=== PATIENT | female | born 1950 | race Caucasian/White ===

== ENCOUNTER 2016-11-08 06:06 | Emergency (ER) | payer MEDICARE, OTHER ==
[~2016-11-08] VITALS: Ht 160 cm; Wt 61.4 kg
[2016-11-08 06:08] VITALS: TEMP 97.6
[2016-11-08] MEDS ORDERED: SINGULAIR 110 MG/TAB PO (06:46)
[2016-11-08] MEDS ORDERED: CLARITIN 1010 MG/TAB PO (06:46)
[2016-11-08] MEDS ORDERED: FLONASE NASAL S16 GM NS (06:46)
[2016-11-08] MEDS ORDERED: LIPITOR 10MG10 MG PO (06:46)
[2016-11-08] MEDS ORDERED: NATURE'S BLEN2000 IU PO (06:47)
[2016-11-08] MEDS ORDERED: PRILOSEC 20MG20 MG PO (06:47)
[2016-11-08 06:48] LABS: BASO # 0.1 (0.0-0.2); BASO % 1.1 % (0.0-2.0); EOS # 0.2 (0.0-0.7); EOS % 2.6 % (0-4.0); GRAN # 3.2 (1.4-6.5); GRAN % 49.1 % (42.2-75.2); HEMATOCRIT 42.6 % (37.0-47.0); HEMOGLOBIN 14.1 g/dl (12.5-16.0); LYMPH # 2.5 (1.2-3.4); LYMPH % 38.4 % (20.0-51.0); MEAN CELL VOLUME 86 fl (80.0-100.0); MEAN CORPUSCULAR HEMOGLOBIN 29 pg (27.0-31.0); MEAN CORPUSCULAR HGB CONC 33 g/dl (33.0-37.0); MEAN PLATELET VOLUME 10.2 fl (7.4-10.4); MONO # 0.6 (0.1-0.6); MONO % 8.6 % (1.7-9.3); PLATELET COUNT 231 K/mm3 (130-400); RED BLOOD COUNT 4.95 M/mm3 (4.10-5.30); REDCELL DISTRIBUTION WIDTH-CV 12.8 % (11.5-14.5); WHITE BLOOD COUNT 6.6 K/mm3 (4.8-10.8)
[2016-11-08 07:10] LABS: ADJUSTED CALCIUM 8.9 mg/dL (8.4-10.2); ALANINE AMINOTRANSFERASE 29 U/L (9-52); ALKALINE PHOSPHATASE 82 U/L (50-136); ANION GAP 11 mmol/L (7-16); BILIRUBIN,TOTAL 0.8 mg/dL (0.0-1.0); BLOOD UREA NITROGEN 10 mg/dL (7-17); CALCIUM 8.9 mg/dL (8.4-10.2); CARBON DIOXIDE 27 mmol/L (22-30); CHLORIDE 102 mmol/L (98-107); CREATININE, serum 0.64 mg/dL (0.52-1.25); GLUCOSE 86 mg/dL (74-106); LIPASE 47 U/L (23-300); POTASSIUM 3.6 mmol/L (3.4-5.0); SODIUM 140 mmol/L (137-145)
[2016-11-08 07:21] LABS: B-TYPE NATRIURETIC PEPTIDE 138 pg/mL (0-125)
[2016-11-08 07:36] LABS: TROPONIN-I < 0.012 ng/mL (0.000-0.034)
[2016-11-08] MEDS ORDERED: ZOFRAN ODT4 MG PO (09:45)
[2016-11-08] MEDS ORDERED: NORCO 325 MG-51 TAB PO (09:45)
[2016-11-08 10:24] LABS: PH 7 (5-8); SQUAMOUS EPITHELIAL None Seen /hpf; URINE APPEARANCE Clear; URINE BACTERIA None Seen /hpf; URINE BILIRUBIN Negative (NEGATIVE); URINE BLOOD 1+ (NEGATIVE); URINE COLOR Yellow; URINE GLUCOSE Negative (NEGATIVE); URINE KETONE Negative (NEGATIVE); URINE UROBILINOGEN Negative (NEGATIVE); URINE WBC 0-2 /hpf
[2016-11-08 10:50] VITALS: BP 113/69; PULSE 50
== END 2016-11-08 10:52 | disposition home or self-care (01) ==
LOC: COL.ER 06:06
PROVIDERS: Emergency Medicine
DX: R10.11 Right upper quadrant pain (principal)
CPT/HCPCS: J1170; J1885; J7030

== ENCOUNTER → 2016-11-11 | Outpatient (CLI) | payer MEDICARE, OTHER ==
[~2016-11-11] MED LIST: CLARITIN 1010 MG/TAB PO; FLONASE NASAL S16 GM NS; LIPITOR 10MG10 MG PO; NATURE'S BLEN2000 IU PO; NORCO 325 MG-51 TAB PO; PRILOSEC 20MG20 MG PO; SINGULAIR 110 MG/TAB PO; ZOFRAN ODT4 MG PO
== END ==
LOC: COL.RAD 08:50
DX: R07.9 Chest pain, unspecified (principal)
CPT/HCPCS: A9537; J2805

== ENCOUNTER → 2018-06-04 | Outpatient (CLI) | payer MEDICARE, OTHER | LOC: MC.RAD 13:34 | DX: Z12.31 Encounter for screening mammogram for malignant neoplasm of breast (principal) ==

== ENCOUNTER → 2018-07-20 | Outpatient (CLI) | payer MEDICARE, OTHER | LOC: COL.VAS 07:46 | DX: R20.2 Paresthesia of skin (principal) ==

== ENCOUNTER → 2019-06-13 | Outpatient (CLI) | payer MEDICARE, OTHER | LOC: MC.RAD 14:06 | DX: Z12.31 Encounter for screening mammogram for malignant neoplasm of breast (principal) ==

== ENCOUNTER → 2020-06-15 | Outpatient (CLI) | payer MEDICARE, OTHER | LOC: MC.RAD 13:00 | DX: Z12.31 Encounter for screening mammogram for malignant neoplasm of breast (principal) ==

== ENCOUNTER → 2021-07-13 | Outpatient (CLI) | payer MEDICARE, OTHER | LOC: ZCOL.LAB 17:16 | DX: U07.1 COVID-19 (principal) ==

== ENCOUNTER → 2021-07-27 | Outpatient (CLI) | payer MEDICARE, OTHER | LOC: MC.RAD 10:49 | DX: Z12.31 Encounter for screening mammogram for malignant neoplasm of breast (principal); Z78.0 Asymptomatic menopausal state ==

== ENCOUNTER → 2022-08-11 | Outpatient (CLI) | payer MEDICARE, OTHER | LOC: MC.RAD 10:00 | DX: Z12.31 Encounter for screening mammogram for malignant neoplasm of breast (principal) ==

== ENCOUNTER → 2023-04-03 | Outpatient (CLI) | payer MEDICARE, OTHER | LOC: MC.RAD 13:42 | DX: N61.0 Mastitis without abscess (principal) ==

== ENCOUNTER 2023-04-26 09:37 | Day surgery (SDC) | payer MEDICARE, OTHER ==
[2023-04-25 21:00] VITALS: BP 105/54; BP_SYST 95; PULSE 89; TEMP 97.4
[2023-04-26] VITALS (14 sets, daily range): BP systolic 95–114; BP diastolic 45–67; PULSE 62–93; TEMP 97.4–97.6
[~2023-04-26] VITALS: Ht 162.6 cm; Wt 65.0 kg
[2023-04-26] MEDS ORDERED: FOSAMAX 70MG TA70 MG PO (12:20)
[2023-04-26] MEDS ORDERED: MASON NATURAL2000 IU PO (12:20)
--- NOTE | 2023-04-26 18:38 | NUR ---
PT ADMITTED TO SURGICAL FLOOR AROUND 1800. ORIENTED TO ROOM. A&OX4; VITALS WNL; SYSTEMS WNL. PT DROWSY FROM ANESTHESIA. BILATERAL ANIKA DRAINS PRESENT TO BREAT AREA-SMALL AMOUNT OF BLOODY DRAINAGE PRESENT. 2L NC ON WHILE PT REMAINS DROWSY. CALL LIGHT IN REACH
--- NOTE | 2023-04-26 19:15 | NUR ---
Received report from day shift nurse. Pt is resting in bed, drowsy, bit wakes up when nurse walked in the room. Pt's bilat mastectomy site is wrapped in aniket wrap and clean, dry, and intact. Pt has ANIKA drain on right and left side. Both drains have very small output, dark red in color. Pt's vitals are stable at this time and has 2L NC of O2 on. Pt not in distress at this time and call light is within reach.
[2023-04-27 01:01] VITALS: BP_SYST 95
[2023-04-27 03:19] VITALS: BP 107/51; PULSE 75; TEMP 97.8
[2023-04-27 05:00] VITALS: BP_SYST 107
--- NOTE | 2023-04-27 05:43 | NUR ---
Pt was on 2L NC of O2 at the beginning of the shift. O2 of turned off at 2100 and was able to keep the SPO2 above 92%. Pt's BP was soft around 2300 and provider was notified. Orders received. 500 ml bolus given and MAP has been at/above 65 and SBP above 90's. Pt has been having some pain throughout the night. Pain meds have been given per EMAR. Pt is currently resting in bed with call light within reach. Will give report to day shift nurse.
[2023-04-27 08:00] VITALS: BP 101/47; PULSE 69; TEMP 98.4
[2023-04-27] MEDS ORDERED: NORCO 325 MG-51 TAB PO ×2 (09:17→12:27)
--- NOTE | 2023-04-27 11:00 | NUR ---
PATIENT ALERT AND ORIENTED X4. VSS. PATIENT HERE FOR BILAT MASTECTOMY. DRAINS X2 WITH BLOODY OUTPUT. DRESSING TO CHEST WITH 4X4, DRAIN SPONGE, AND GRACIELA WRAP. IV TO RIGHT HAND INT AND FLUSHES WELL. CALL LIGHT IN REACH. NO FURTHER NEEDS AT THIS TIME.
--- NOTE | 2023-04-27 12:08 | NUR ---
DISCHARGE INSTRUCTIONS PROVIDED. PATIENT EDUCATION GIVEN ON ANIKA DRAIN UTILIZING TEACHBACK METHOD WITH PATIENT AND FAMILY. DRESSING CHANGES AND RESTRICTIONS REVIEWED. FOLLOW UP APPOINTMENT DISCUSSED. MEDICATIONS REVIEWED. IV DC'D. PATIENT AND FAMILY DENY ANY QUESTIONS OR CONCERNS. PATIENT ESCORTED OUT VIA WHEELCHAIR.
[2023-05-08] MEDS ORDERED: NORCO 325 MG-51 TAB PO (12:19)
== END 2023-04-27 11:30 | disposition home or self-care (01) ==
LOC: SDCO 09:37 → SURG 18:12 → SDCO 04-27 11:30
DX: D05.12 Intraductal carcinoma in situ of left breast (principal); K21.9 Gastro-esophageal reflux disease without esophagitis; N60.01 Solitary cyst of right breast; N64.89 Other specified disorders of breast; Z79.899 Other long term (current) drug therapy
CPT/HCPCS: OP; J0690; J1100; J1170; J2405; J2704; J3010; J7040; J7120